=== PATIENT | male | born 1960 | race Caucasian/White ===

== ENCOUNTER → 2021-02-21 | Outpatient (CLI) | payer OTHER ==
[~2021-02-21] MED LIST: ASPIRIN EC81 MG PO
== END ==
LOC: CT 14:29
DX: R63.4 Abnormal weight loss (principal); J43.8 Other emphysema; Z71.6 Tobacco abuse counseling; R91.8 Other nonspecific abnormal finding of lung field; K59.00 Constipation, unspecified
CPT/HCPCS: 71260; Q9967